=== PATIENT | male | born 1975 | race Caucasian/White ===

== ENCOUNTER 2016-12-18 21:12 | Emergency (ER) | payer MEDICARE, MEDICAID ==
[~2016-12-18] VITALS: Ht 182.9 cm; Wt 95.6 kg
[2016-12-18 22:43] LABS: ASPARTATE AMINO TRANSFERASE 41 U/L (15-37); BLOOD UREA NITROGEN 2 mg/dL (7-18)
[2016-12-18 22:47] LABS: ACETAMINOPHEN < 2 mcg/mL (10-30)
[2016-12-18 22:52] LABS: DAU SCREEN DISCLAIMER
[2016-12-18] MEDS ORDERED: BUSP30TA PO (23:25)
[2016-12-18] MEDS ORDERED: DIVA500T2 PO (23:25)
[2016-12-18] MEDS ORDERED: ZOLP10TA PO (23:25)
[2016-12-19] MEDS ORDERED: NICOTINE 21 MG/24 HR PATCH.TD24 TD ONE (02:30)
[2016-12-19] MEDS ORDERED: NICOTINE 21 MG/24 HR PATCH.TD24 ONE (02:56)
[2016-12-19 03:14] VITALS: BP 124/78
== END 2016-12-19 03:17 | disposition home or self-care (01) ==
LOC: ED 23:59
DX: F25.0 Schizoaffective disorder, bipolar type (principal)
CPT/HCPCS: 36415; 80053; 80307; 80329; 85025; 99284; G0480

== ENCOUNTER 2017-03-12 17:07 | Observation (INO) | payer MEDICARE, MEDICAID ==
[~2017-03-12] VITALS: Ht 182.9 cm; Wt 100.0 kg
[~2017-03-12 17:07] MED LIST: BUSP30TA PO; DIVA500T2 PO; ZOLP10TA PO
[2017-03-12] MEDS ORDERED: DIPH,PERTUSS(ACELL),TET VAC/PF 0.5 ML IM-VACC ONE ×2 (17:59→18:00)
[2017-03-12 18:06] LABS: DAU SCREEN DISCLAIMER
[2017-03-12 18:32] LABS: HEMATOCRIT 47.3 % (39.2-51.8); HEMOGLOBIN 15.9 g/dL (13.7-18.0); WHITE BLOOD COUNT 10.6 x10^3/uL (3.4-10)
[2017-03-12 18:41] LABS: BLOOD UREA NITROGEN 5 mg/dL (7-18)
[2017-03-12 18:42] LABS: ACETAMINOPHEN < 2 mcg/mL (10-30)
[2017-03-12] MEDS ORDERED: ZIPRASIDONE 20 MG INJ IM ONE ×2 (19:49→20:00)
[2017-03-12] MEDS ORDERED: NICOTINE 21 MG/24 HR PATCH.TD24 ONE (19:49)
[2017-03-12] MEDS ORDERED: NICOTINE 21 MG/24 HR PATCH.TD24 TD ONE (20:00)
[2017-03-13] MEDS ORDERED: LORazepam 2 MG/ML, 1ML ONE (07:43)
[2017-03-13] MEDS ORDERED: LORazepam 2 MG/ML, 1ML IM ONE (08:00)
[2017-03-13] MEDS ORDERED: FOLIC ACID 1 MG TABLET PO SCH (11:00)
[2017-03-13] MEDS ORDERED: ACETAMINOPHEN 325 MG TABLET PO PRN (11:00)
[2017-03-13] MEDS ORDERED: THIAMINE 100MG TABLET PO SCH (11:00)
[2017-03-13] MEDS ORDERED: MULTIVITAMIN 1 TABLET PO SCH (11:00)
[2017-03-13] MEDS ORDERED: BISACODYL 10 MG SUPP PR PRN (11:00)
[2017-03-13] MEDS ORDERED: DOCUSATE 100 MG CAPSULE PO PRN (11:00)
[2017-03-13] MEDS ORDERED: LORazepam 1MG TABLET PO PRN (11:00)
[2017-03-13] MEDS ORDERED: ONDANSETRON ODT 4 MG PO PRN (11:00)
[2017-03-13] MEDS ORDERED: POLYETHYLENE GLYCOL 17 GM PACKET PO PRN (11:00)
[2017-03-13 11:44] VITALS: BP 135/88
[2017-03-13 12:21] VITALS: BP 135/88
== END 2017-03-13 15:45 ==
LOC: ED 18:32 → EDIP 03-13 10:06 → 3E 03-13 11:30
PROVIDERS: ADMIT Internal Medicine; ATTEND Internal Medicine
DX: S61.511A Laceration without foreign body of right wrist, initial encounter (principal); S61.512A Laceration without foreign body of left wrist, initial encounter; F10.229 Alcohol dependence with intoxication, unspecified; F23 Brief psychotic disorder; F25.0 Schizoaffective disorder, bipolar type; X78.8XXA Intentional self-harm by other sharp object, initial encounter; Y93.89 Activity, other specified; Y99.8 Other external cause status; Y92.89 Other specified places as the place of occurrence of the external cause; Z98.890 Other specified postprocedural states; Z23 Encounter for immunization
CPT/HCPCS: 12001; 36415; 80048; 80307; 80329; 82040; 83735; 85025; 90471; 90715; 93005; 96372; 99285; G0378; J2060; J3486; G0479; G0480

== ENCOUNTER 2018-04-07 16:42 | Emergency (ER) | payer MEDICARE, MEDICAID ==
[~2018-04-07] VITALS: Ht 182.9 cm; Wt 98.5 kg
[2018-04-07 17:40] LABS: BASOPHILS # (AUTO) 0.04 x10^3/uL (0-0.1); BASOPHILS % (AUTO) 1 % (0-1); EOSINOPHILS # (AUTO) 0.15 x10^3/uL (0-0.4); EOSINOPHILS % (AUTO) 2 % (1-7); LYMPHOCYTES % (AUTO) 30 % (22-44); MD NO; MEAN CORPUSCULAR HEMOGLOBIN 31.5 pg (27.5-34.5); MEAN CORPUSCULAR HGB CONC 33.8 g/dL (33.2-36.2); MEAN CORPUSCULAR VOLUME 93.1 fL (81-97); MEAN PLATELET VOLUME 7.9 fL (7.4-10.4); MONOCYTES % (AUTO) 6 % (2-9); NEUTROPHILS % (AUTO) 61 % (42-75); PLATELET COUNT 279 x10^3/uL (130-400); RED BLOOD COUNT 4.98 x10^6/uL (4.38-5.82); RED CELL DISTRIBUTION WIDTH 13.2 % (9.4-14.8)
[2018-04-07 17:51] LABS: ALANINE AMINOTRANSFERASE 25 U/L (12-78); ALBUMIN 3.7 g/dL (3.4-5.0); ANION GAP 10 mmol/L (5-15); CALCIUM 8.8 mg/dL (8.5-10.1); CHLORIDE 109 mmol/L (98-107); CREATININE 0.81 mg/dL (0.7-1.3); SALICYLATE LEVEL 3.4 mg/dL (2.8-20.0)
[2018-04-07 17:53] LABS: ALKALINE PHOSPHATASE 52 U/L (45-117); BILIRUBIN,TOTAL 0.6 mg/dL (0.2-1.0); TOTAL PROTEIN 7.1 g/dL (6.4-8.2)
[2018-04-07 17:55] LABS: ACETAMINOPHEN < 2 mcg/mL (10-30)
[2018-04-07 18:13] LABS: AMPHETAMINE SCREEN, URINE Negative (Negative); BARBITURATE SCREEN, URINE Negative (Negative); BENZODIAZEPINE SCREEN, URINE Negative (Negative); CANNABINOID SCREEN, URINE Positive (Negative); COCAINE SCREEN, URINE Negative (Negative); METHADONE SCREEN, URINE Negative (Negative); OPIATE SCREEN, URINE Negative (Negative)
[2018-04-07 19:58] VITALS: BP 118/80
== END 2018-04-07 20:00 | disposition home or self-care (01) ==
LOC: ED 17:23
DX: R44.0 Auditory hallucinations (principal); F31.9 Bipolar disorder, unspecified
CPT/HCPCS: 36415; 80053; 80307; 80329; 82140; 85025; 99284; G0480